=== PATIENT | female | born 1975 | race Caucasian/White ===

== ENCOUNTER 2024-01-29 09:10 | Emergency (ER) | payer BC, SELFPAY ==
[2024-01-29 09:17] VITALS: BP 160/98
[2024-01-29 09:42] LABS: % Basophils 1.1 % (0-2); % Eosinophils 0.5 % (0-6); % Immature Granulocytes 0.2 % (0-0.5); % Lymphocytes 17.5 % (20.5-51.1); % Monocytes 6.3 % (1.7-9.3); % Neutrophils 74.4 % (42.2-75.2); Absolute Basophils 0.1 10^3/uL (0-0.2); Absolute Lymphocytes 1.5 10^3/uL (1.2-3.4); Absolute Monocytes 0.6 10^3/uL (0.1-0.6); Absolute Neutrophils 6.6 10^3/uL (1.4-6.5); Hematocrit 40.8 % (37.0-47.0); Mean Corp Hgb Conc. 34.3 g/dL (33.0-37.0); Mean Corpuscular Hgb 29.4 pg (27.0-31.0); Mean Corpuscular Volume 85.5 fL (81.0-99.0); Mean Platelet Volume 9.9 fL (7.4-10.4); Nucleated Red Blood Cells % 0 %; Platelet Count 318 10^3/uL (130-400); Red Blood Cell Count 4.77 10^6/uL (4.20-5.40); Red Cell Dist. Width 12.3 % (11.5-14.5); White Blood Cell Count 8.8 10^3/uL (4.8-10.8)
[2024-01-29 10:00] LABS: ALT (SGPT) 32 U/L (0-35); AST (SGOT) 27 U/L (14-36); Albumin 4.5 g/dl (3.5-5.0); Alkaline Phosphatase 61 U/L (38-126); Blood Urea Nitrogen 11 mg/dl (7-17); Calcium 9.8 mg/dl (8.4-10.2); Carbon Dioxide 24 mmol/L (22-30); Chloride 105 mmol/L (98-107); Glucose 96 mg/dl (70-99); Potassium 3.9 mmol/L (3.5-5.1); Sodium 134 mmol/L (135-145); Total Bilirubin 0.9 mg/dl (0.2-1.3); Total Protein 7.9 g/dl (6.3-8.2); eGFR > 60.00
[2024-01-29 10:02] LABS: HCG, Serum Qualitative Screen Negative
--- NOTE | 2024-01-29 11:11 | ED.GENMED ---
History of Present Illness
General
Chief Complaint: Weakness
Time Seen by Provider: 01/29/24 10:51
Travel History
Have you had any contact with someone who has COVID-19?: No
Do you have any symptoms of coronavirus? Fever > 100 degrees, chills, cough, shortness of breath, sore throat, loss of taste or smell, muscle aches, or headache?: No
History of Present Illness
History of Present Illness:
48 yo female With history Postural orthostatic tachycardia syndrome presents to the emergency department for evaluation of generalized weakness. She also feels as though the lights are brighter and noticed that her pupils are 'huge'. She notes
diffuse full body tingling. Symptoms seem to have worsened in the past 2 days after increasing her Prozac dosage. She is on this for a long COVID. Denies any chest pain or shortness of breath.
Past History
Past History
ED Past Medical History: Other (Migraines, COVID-19)
ED Past Surgical History: None
Social History
Tobacco: Non-smoker
Personal:
Living: with family
Employment: Not employed
Family History
Family History: Other (reviewed and Noncontributory.)
Review of Systems
Review of Systems
Allergies reviewed?: Yes
All Other Systems: ROS reviewed and negative except as documented in HPI and ROS
Phy Exam
Physical Exam
Physical Exam:
GEN: Well appearing, NAD, WDWN
HEENT: Oral mucosa moist, no scleral icterus, no nasal congestion
Cardiac: Regular rate and rhythm no murmur
Lung: No respiratory distress, no tachypnea
MSK: No gross deformity or injuries
Skin: Good color, no pallor or jaundice, no rashes
Neuro: AO x3; CN II-XII grossly intact. BUE strength 5/5 in all moore, sensation intact and symmetric. BLE strength 5/5 in all moore, sensation intact and symmetric
Psych: Calm, cooperative
Course
Orders/Labs/Results
Orders:
Orders
01/29/24 09:20
Electrocardiogram (*1) Urgent
Reason for Study: Abdominal Pain
EKG- Treatment ONCE
Test Result ONCE
01/29/24 09:35
Complete Blood Count/With Diff Urgent
Comprehensive Metabolic Panel Urgent
HCG, Serum Qualitative Screen Urgent
Abnormal Lab Results
01/29/24
09:35
Absolute Neuts (auto) 6.6 H 10^3/uL
(1.4-6.5)
Lymphocytes % 17.5 L %
(20.5-51.1)
Sodium 134 L mmol/L
(135-145)
01/29/24 09:35
01/29/24 09:35
Vital Signs
Initial and Last Documented VS:
Initial Vital Signs
Temp Pulse Resp BP Pulse Ox
98.2 F 89 16 160/98 100
01/29/24 09:17 01/29/24 09:17 01/29/24 09:17 01/29/24 09:17 01/29/24 09:17
Last Documented Vital Signs
Temp Pulse Resp BP Pulse Ox
98.2 F 89 16 160/98 100
01/29/24 09:17 01/29/24 09:17 01/29/24 09:17 01/29/24 09:17 01/29/24 09:17
MDM/Problems Addressed
MDM/Problems Addressed:
48-year-old female presents with vague symptoms of weakness, diffuse body paresthesia, dilated pupils, and tachycardia. Her vital signs and labs are grossly unremarkable here. She has a nonfocal neurologic exam. Unclear etiology of symptoms. I
have recommended that she decrease her Prozac dosage to the previous level, follow-up with her primary care physician if symptoms do not improve
*Critical Care Note
Total Time (30-74mins, 75-104mins- exclusive of procedures): Not Applicable
ED Attending Note
-
Portions of this chart may have been created with voice recognition software.� Occasional wrong word or��sound alike� substitutions may have occurred due to the inherent limitations of voice recognition software.
Discharge Plan
Departure
Patient Disposition: Home (Routine Discharge)
Date of Disposition: 01/29/24
Time of Disposition: 11:13
Patient with high blood pressure during this ER visit?: No
Discharge Problem:
Generalized weakness
Instructions: Generalized Weakness (DC)
Prescriptions:
No Action
ferrous sulfate [FeroSul] 325 MG tablet
325 mg PO HS Qty: 30 0RF
sennosides [senna] 1 TABLET tablet
2 tab PO NOON 0RF
polyethylene glycol 3350 17 GRAMS powder in packet
17 grams PO BID 0RF
clonazepam 0.25 MG tablet
0.5 mg PO HS Qty: 60 0RF
Rx Instructions:
0.25 mg daily, 0.5 mg HS
diphenhydramine HCl [Banophen] 25 MG capsule
25 mg PO HSPRN PRN (Reason: insomnia) 0RF
bisacodyl 5 MG tablet,delayed release (DR/EC)
10 mg PO DAILYPRN PRN (Reason: constipation) 0RF
loratadine 10 MG tablet
10 mg PO DAILY 0RF
benzocaine-menthol [Cepacol Sore Throat (elliot-men)] 1 LOZENGE lozenge
1 carmen PO Q4HPRN PRN (Reason: sore throat) 0RF
metoprolol succinate 25 MG tablet extended release 24 hr
25 mg PO BID Qty: 135 3RF
Rx Instructions:
take 25mg in AM and 12.5 mg in PM
Activity Restrictions/Additional Instructions:
Try to decrease your Prozac dose to the previous dosage earlier in the week and see if this alleviates her symptoms
Interventions
Interventions:
*Risk Screen - Suicide Last Done: 01/29/24 09:17
*General Assessment Last Done: 01/29/24 09:17
*Neglect/Abuse Screening Last Done: 01/29/24 09:17
ED- Fall Risk Assessment Last Done: 01/29/24 11:26
*ED COVID-19 Vaccine History Last Done: 01/29/24 10:48
*Nursing Disposition Last Done: 01/29/24 11:26
ED- Cardiac Assessment Last Done: 01/29/24 11:24
ED- Neurological Assessment Last Done: 01/29/24 11:24
ED- Pulmonary Assessment Last Done: 01/29/24 11:24
Discharge Date and Time
Discharge Date/Time: 01/29/24 11:38
== END 2024-01-29 11:38 | disposition home or self-care (01) ==
LOC: EMR 09:10
PROVIDERS: Emergency Medicine; EMERGENCY PHYSICIAN Emergency Medicine; FAMILY PHYSICIAN Physician Assistant Medical
DX: R53.1 Weakness (principal); R00.0 Tachycardia, unspecified; R20.2 Paresthesia of skin
CPT/HCPCS: 99284; 80053; 84703; 85025; 93005

== ENCOUNTER 2024-02-15 01:21 | Emergency (ER) | payer BC, SELFPAY ==
[2024-02-15 01:25] VITALS: BP 140/98
[2024-02-15 01:54] LABS: % Basophils 1.7 % (0-2); % Eosinophils 2.3 % (0-6); % Immature Granulocytes 0.1 % (0-0.5); % Lymphocytes 32.6 % (20.5-51.1); % Monocytes 7.7 % (1.7-9.3); % Neutrophils 55.6 % (42.2-75.2); Absolute Basophils 0.1 10^3/uL (0-0.2); Absolute Eosinophils 0.2 10^3/uL (0-0.7); Absolute Lymphocytes 2.3 10^3/uL (1.2-3.4); Absolute Monocytes 0.5 10^3/uL (0.1-0.6); Absolute Neutrophils 3.9 10^3/uL (1.4-6.5); Hematocrit 43.1 % (37.0-47.0); Hemoglobin 14.3 g/dL (12.0-16.0); Mean Corp Hgb Conc. 33.2 g/dL (33.0-37.0); Mean Corpuscular Hgb 29.2 pg (27.0-31.0); Mean Corpuscular Volume 88.1 fL (81.0-99.0); Mean Platelet Volume 10.2 fL (7.4-10.4); Nucleated Red Blood Cells % 0 %; Platelet Count 334 10^3/uL (130-400); Red Blood Cell Count 4.89 10^6/uL (4.20-5.40); Red Cell Dist. Width 12.4 % (11.5-14.5)
[2024-02-15 02:04] LABS: HCG, Serum Qualitative Screen Negative
[2024-02-15 02:07] LABS: ALT (SGPT) 24 U/L (0-35); AST (SGOT) 25 U/L (14-36); Alkaline Phosphatase 97 U/L (38-126); Blood Urea Nitrogen 18 mg/dl (7-17); Calcium 10.6 mg/dl (8.4-10.2); Carbon Dioxide 24 mmol/L (22-30); Chloride 101 mmol/L (98-107); Glucose 117 mg/dl (70-99); Potassium 3.6 mmol/L (3.5-5.1); Sodium 136 mmol/L (135-145); Total Bilirubin 0.4 mg/dl (0.2-1.3); Total Protein 8.8 g/dl (6.3-8.2); eGFR > 60.00
[2024-02-15 04:25] VITALS: BMI 24.9
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
[2024-02-15] MEDS: SOLU-CORTEF 200 MG IV (04:31)
[2024-02-15] MEDS: BENADRYL 50 MG IV (04:32)
[2024-02-15 04:33] VITALS: BP 125/84
[2024-02-15 05:00] VITALS: BP 126/78
[2024-02-15 06:00] VITALS: BP 114/63
== END 2024-02-15 06:55 | disposition home or self-care (01) ==
LOC: EMR 01:21
PROVIDERS: Emergency Medicine; EMERGENCY PHYSICIAN Student in an Organized Health Care Education/Training Program; FAMILY PHYSICIAN Physician Assistant Medical
DX: R51.9 Headache, unspecified (principal); R11.0 Nausea; M54.2 Cervicalgia
CPT/HCPCS: 99285; 96374; 96375; 70496; 70498; 80053; 84703; 85025; 93005; Q9967

== ENCOUNTER → 2024-06-24 14:41 | Outpatient (REF) | payer BC, SELFPAY | LOC: RAD 14:41 | PROVIDERS: ATTENDING PHYSICIAN Student in an Organized Health Care Education/Training Program; FAMILY PHYSICIAN Physician Assistant Medical | DX: M79.662 Pain in left lower leg (principal); M79.89 Other specified soft tissue disorders | CPT/HCPCS: 93971 ==

== ENCOUNTER 2025-02-07 14:05 | Emergency (ER) | payer BC, SELFPAY ==
[2025-02-07 14:10] VITALS: BP 157/65
[2025-02-07 14:36] LABS: % Basophils 0.9 % (0-2); % Eosinophils 0.7 % (0-6); % Immature Granulocytes 0.2 % (0-0.5); % Lymphocytes 21.8 % (20.5-51.1); % Monocytes 7.5 % (1.7-9.3); % Neutrophils 68.9 % (42.2-75.2); Absolute Basophils 0.1 10^3/uL (0-0.2); Absolute Eosinophils 0.1 10^3/uL (0-0.7); Absolute Monocytes 0.7 10^3/uL (0.1-0.6); Absolute Neutrophils 6.3 10^3/uL (1.4-6.5); Hemoglobin 13.9 g/dL (12.0-16.0); Mean Corp Hgb Conc. 33.9 g/dL (33.0-37.0); Mean Corpuscular Hgb 29.5 pg (27.0-31.0); Mean Platelet Volume 9.8 fL (7.4-10.4); Nucleated Red Blood Cells % 0 %; Platelet Count 319 10^3/uL (130-400); Red Blood Cell Count 4.71 10^6/uL (4.20-5.40); Red Cell Dist. Width 12.4 % (11.5-14.5); White Blood Cell Count 9.2 10^3/uL (4.8-10.8)
[2025-02-07 14:42] LABS: HCG, Serum Qualitative Screen Negative
[2025-02-07 14:47] LABS: D-Dimer 0.35 ug/mlFEU (0.00-0.50)
[2025-02-07 14:48] LABS: ALT (SGPT) 30 U/L (0-35); AST (SGOT) 25 U/L (14-36); Albumin 4.6 g/dl (3.5-5.0); Alkaline Phosphatase 76 U/L (38-126); Blood Urea Nitrogen 12 mg/dl (7-17); Calcium 10.4 mg/dl (8.4-10.2); Carbon Dioxide 25 mmol/L (22-30); Chloride 103 mmol/L (98-107); Glucose 105 mg/dl (70-99); Potassium 3.8 mmol/L (3.5-5.1); Sodium 136 mmol/L (135-145); Total Bilirubin 0.6 mg/dl (0.2-1.3); eGFR > 60.00
--- NOTE | 2025-02-07 14:52 | ED.GENMED ---
History of Present Illness
General
Chief Complaint: Cardiac Symptoms
Source: patient
Exam Limitations: none
Time Seen by Provider: 02/07/25 14:38
Nursing documentation reviewed up to this point in time: agreed with
History of Present Illness
History of Present Illness:
49-year-old female presents emergency department due to palpitations, dizziness, near syncope episode, feeling her heartbeat in her ears, cold sensation to her left calf, chest pain shortness of breath and palpitations are present.
Past History
Past History
ED Past Medical History: Other (Migraines, COVID-19, POTS)
ED Past Surgical History: None
Social History
Tobacco: Non-smoker
Personal:
Living: with family
Employment: Not employed
Family History
Family History: Other (reviewed and Noncontributory.)
Review of Systems
Review of Systems
Allergies reviewed?: Yes
All Other Systems: Not applicable
Constitutional: Reports no symptoms
EENT: Reports no symptoms
Respiratory: Reports no symptoms
Cardiac: Reports no symptoms
ABD/GI: Reports no symptoms
: Reports no symptoms
Musculoskeletal: Reports no symptoms
Skin: Reports no symptoms
Neurological: Reports weakness
Endocrine: Reports no symptoms
Hematologic/Lymphatic: Reports no symptoms
Psychiatric: Reports no symptoms
Phy Exam
Physical Exam
Physical Exam:
Physical Exam
General: no apparent distress, not acutely ill
Neck: supple. no meningeal signs. normal posterior pharynx
Heart: s1/s2 regular rate and rhythm, no murmur. equal radial
pulses.
HEENT: Pupils equal round reactive to light, EOMI
Lungs: no acute respiratory distress. clear bilaterally
Abdomen: normal bowel sounds. not tender. no CVAT
Neuro: alert and oriented. no focal neurological deficits cranial nerves II through XII intact
Skin: no rash
Psychiatric: well kept. interactive and cooperative
Extremities: no edema. no calf tenderness. negative homans. good distal pulses
Course
Orders/Labs/Results
Orders:
Orders
02/07/25 14:08
Electrocardiogram (*1) Urgent
Reason for Study: Tachycardia
EKG- Treatment ONCE
02/07/25 14:10
Test Result ONCE
02/07/25 14:19
Complete Blood Count/With Diff Urgent
Comprehensive Metabolic Panel Urgent
D-Dimer Urgent
HCG, Serum Qualitative Screen Urgent
Troponin I Urgent
02/07/25 14:52
CT Head W/o Iv Contrast Urgent
Comment:
Reason For Exam: headache
0.9% Sodium Chloride 1000 ml [Nss] 1,000 ml IV BOLUS
Physical Therapy Consult [Pt Eval And Treat] Urgent
Treatment: vestibular evaluation
Activity Level: Ambulate
Abnormal Lab Results
02/07/25
14:19
Absolute Monos (auto) 0.7 H 10^3/uL
(0.1-0.6)
Glucose 105 H mg/dl
(70-99)
Calcium 10.4 H mg/dl
(8.4-10.2)
02/07/25 14:19
02/07/25 14:19
Vital Signs
Initial and Last Documented VS:
Initial Vital Signs
Temp Pulse Resp BP Pulse Ox
98.5 F 124 16 157/65 99
02/07/25 14:10 02/07/25 14:10 02/07/25 14:10 02/07/25 14:10 02/07/25 14:10
Last Documented Vital Signs
Temp Pulse Resp BP Pulse Ox
98.5 F 89 23 117/76 98
02/07/25 14:10 02/07/25 15:15 02/07/25 15:15 02/07/25 15:10 02/07/25 15:17
MDM/Problems Addressed
Differential Diagnosis Includes:
Vertigo, POTS, dysrhythmia
MDM/Problems Addressed:
49-year-old female with dizziness, palpitations, near syncope. No acute findings on CT head, or labs. Do not suspect PE or ACS. No signs of dysrhythmia. Stable for discharge.
Chronic conditions affecting care:
POTS
Acute Exacerbation and/or Progression of Chronic Illness:
POTS
*Radiology
Radiology exam reviewed: radiology read reviewed (CT head no acute findings)
*Pulse Oximetry
Patient hypoxic: no
*EKG
Interpreted by ED Provider?: Yes
EKG Intrepretation Date: 02/07/25
EKG Intrepretation Time: 14:12
Interpretation: abnormal
Comparison EKG: no comparison EKG present
Heart Rate: 104
Rate: tachycardiac
Rhythm: sinus tachycardia
[place]: normal axis
Interval: normal interval
QRS Pattern: normal QRS
Ischemia: no ischemia
*Piano Case And Bench Assembler Interpretation
Rate: tachycardiac
Interpretation: abnormal
Heart Rate: 104
Rhythm: sinus tachycardia
*Critical Care Note
Total Time (30-74mins, 75-104mins- exclusive of procedures): Not Applicable
Patient Management
Social determinants of health affecting care: Living situation
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
Escalation/DeEscalation of care consider admission/obs:
Admit not indicated
ED Attending Note
-
Portions of this chart may have been created with voice recognition software.� Occasional wrong word or��sound alike� substitutions may have occurred due to the inherent limitations of voice recognition software.
Discharge Plan
Departure
Patient Disposition: Home (Routine Discharge)
Date of Disposition: 02/07/25
Time of Disposition: 16:30
Patient with high blood pressure during this ER visit?: Yes
Condition: Good
Discharge Problem:
Tachycardia, Dizziness
Instructions: Palpitations, Dizziness, BLOOD PRESSURE
Prescriptions:
No Action
ferrous sulfate [FeroSul] 325 MG tablet
325 mg PO HS Qty: 30 0RF
sennosides [senna] 1 TABLET tablet
2 tab PO NOON 0RF
polyethylene glycol 3350 17 GRAMS powder in packet
17 grams PO BID 0RF
clonazepam 0.25 MG tablet
0.5 mg PO HS Qty: 60 0RF
Rx Instructions:
0.25 mg daily, 0.5 mg HS
diphenhydramine HCl [Banophen] 25 MG capsule
25 mg PO HSPRN PRN (Reason: insomnia) 0RF
bisacodyl 5 MG tablet,delayed release (DR/EC)
10 mg PO DAILYPRN PRN (Reason: constipation) 0RF
loratadine 10 MG tablet
10 mg PO DAILY 0RF
benzocaine-menthol [Cepacol Sore Throat (elliot-men)] 1 LOZENGE lozenge
1 carmen PO Q4HPRN PRN (Reason: sore throat) 0RF
metoprolol succinate 25 MG tablet extended release 24 hr
25 mg PO BID Qty: 135 3RF
Rx Instructions:
take 25mg in AM and 12.5 mg in PM
Referrals:
Mike Mendieta MD [Family Provider] -
Interventions
Interventions:
*Risk Screen - Suicide Last Done: 02/07/25 15:17
*General Assessment Last Done: 02/07/25 15:17
*Neglect/Abuse Screening Last Done: 02/07/25 15:17
*ED- Fall Risk Assessment Last Done: 02/07/25 15:17
*ED COVID-19 Vaccine History Last Done: 02/07/25 15:17
ED- Pulmonary Assessment Last Done: 02/07/25 15:17
ED- Cardiac Assessment Last Done: 02/07/25 15:17
Discharge Date and Time
Print Language: [email or web address]
[2025-02-07 14:57] LABS: Troponin I < 0.012 ng/ml
[2025-02-07 15:10] VITALS: BP 117/76
[2025-02-07] MEDS: NSS 1000 IV (15:15)
[2025-02-07 15:16] VITALS: BMI 25.3
[2025-02-07 15:51] VITALS: BP 135/72
[2025-02-07 15:59] VITALS: BP 123/86
[2025-02-07 16:03] VITALS: BP 143/105
[2025-02-07 16:47] VITALS: BP 123/86; BP 135/72; BP 143/105; PULSE 106; PULSE 127; PULSE 84; O2SAT 100
== END 2025-02-07 16:57 | disposition home or self-care (01) ==
LOC: EMR 14:05
PROVIDERS: Emergency Medicine; EMERGENCY PHYSICIAN Emergency Medicine; FAMILY PHYSICIAN Family Medicine
DX: R42 Dizziness and giddiness (principal); R00.2 Palpitations; R03.0 Elevated blood-pressure reading, without diagnosis of hypertension
CPT/HCPCS: 99285; 96360; 70450; 80053; 84484; 84703; 85025; 85379; 93005

== ENCOUNTER 2025-03-07 13:55 | Outpatient (RCR) | payer BC, SELFPAY | END 2025-03-07 23:59 | disposition home or self-care (01) | LOC: RPT 13:55 | PROVIDERS: ATTENDING PHYSICIAN Physician Assistant Medical | DX: R42 Dizziness and giddiness (principal); F41.0 Panic disorder [episodic paroxysmal anxiety]; Z73.6 Limitation of activities due to disability; M62.81 Muscle weakness (generalized); R51.9 Headache, unspecified; M54.2 Cervicalgia; G93.5 Compression of brain; G58.8 Other specified mononeuropathies | CPT/HCPCS: 97112; 97163 ==